=== PATIENT | female | born 1990 | race Caucasian/White ===

== ENCOUNTER 2019-08-14 21:37 | Outpatient (REF) | payer SELFPAY ==
[2019-08-14 21:47] LABS: Bilirubin Negative (Negative); Blood Moderate (Negative); Clarity Sl Cloudy (Clear); Glucose Negative (Negative); Ketones Negative (Negative); Leukocyte Esterase Small (Negative); Nitrite Negative (Negative); Specific Gravity 1.015 (1.005-1.025); pH 7.5 (5-8)
[2019-08-14 22:17] LABS: Bacteria Moderate HPF (Negative); Crystals Negative HPF (Negative); Epithelial Cells Many HPF (Negative); Mucus Negative (Negative); WBC 20-50 HPF (0-5)
[2019-08-14 22:18] LABS: C & S Indicated? C&S Done As Ordered
== END 2019-08-14 21:57 ==
LOC: NCHCN 21:37
PROVIDERS: PCP Nurse Practitioner Family; Visit Provider Nurse Practitioner Family
DX: N39.0 Urinary tract infection, site not specified (principal)
CPT/HCPCS: 87077; 81003; 81015; 87086; 87186

== ENCOUNTER 2019-10-13 21:13 | Outpatient (REF) | payer OTHER, SELFPAY ==
[2019-10-13 21:49] LABS: HCG Quant, Pregnancy < 1 mIU/mL (1-3)
== END 2019-10-13 21:33 ==
LOC: NCHCN 21:13
PROVIDERS: PCP Nurse Practitioner Family; Visit Provider Nurse Practitioner Community Health
DX: R10.32 Left lower quadrant pain (principal)
CPT/HCPCS: 84702

== ENCOUNTER 2020-01-05 21:10 | Outpatient (REF) | payer OTHER, SELFPAY ==
[2020-01-05 21:03] LABS: HCT 40.8 % (36.0-46.0); HGB 13.3 g/dL (12.0-15.5); Mean Corp. HGB Concentration 32.6 g/dL (32.0-36.0); Mean Corpuscular Hemoglobin 28.3 pg (27.0-33.0); Mean Corpuscular Volume 86.8 fL (80-95); Mean Platelet Volume 10.4 fL (8.0-11.0); Platelet Count 320 x1000/uL (130-400); White Blood Cell Count 3.75 k/cumm (4.4-10.8)
[2020-01-05 21:37] LABS: Vitamin D 25 Total 20.6 ng/ml (30-100)
[2020-01-05 21:52] LABS: BUN 18 mg/dL (7-18); Calcium 9.1 mg/dL (8.5-10.1); Chloride 105 mmol/L (98-107); Glucose 92 mg/dL (74-106); Magnesium 1.8 mg/dL (1.8-2.4); Potassium 4.1 mmol/L (3.5-5.1); Sodium 139 mmol/L (136-145); TSH (W/Ref FT4) 2.81 uIU/mL (0.36-3.74); Vitamin B12 429 pg/mL (193-986)
== END 2020-01-05 21:30 ==
LOC: NCHCN 21:10
PROVIDERS: PCP Nurse Practitioner Family; Visit Provider Nurse Practitioner Community Health
DX: N92.0 Excessive and frequent menstruation with regular cycle (principal); E87.6 Hypokalemia; E83.42 Hypomagnesemia; F41.8 Other specified anxiety disorders
CPT/HCPCS: 80048; 82306; 85027; 82607; 83735; 84443

== ENCOUNTER 2020-01-12 14:01 | Outpatient (REF) | payer OTHER, SELFPAY ==
[2020-01-12 20:57] LABS: Abs Immature Grans 0.01 k/cumm (0.0-0.09); Absolute Eosinophil Count 0.03 k/cumm (0.0-0.7); Absolute Lymphocyte Count 1.24 k/cumm (1.2-3.4); Absolute Monocyte Count 0.47 k/cumm (0.11-0.7); Absolute Neutrophil Count 1.93 k/cumm (1.2-6.7); Eosinophils % 0.8; HCT 42.2 % (36.0-46.0); HGB 13.8 g/dL (12.0-15.5); Immature Grans % 0.3 %; Lymphocytes % 33.7; Mean Corp. HGB Concentration 32.7 g/dL (32.0-36.0); Mean Corpuscular Hemoglobin 28.3 pg (27.0-33.0); Mean Corpuscular Volume 86.7 fL (80-95); Mean Platelet Volume 9.7 fL (8.0-11.0); Monocytes % 12.8; Neutrophils % 52.4; Platelet Count 324 x1000/uL (130-400); RBC 4.87 m/cumm (4.00-5.20); RBC Distribution Width 13.8 % (11.7-14.6); White Blood Cell Count 3.68 k/cumm (4.4-10.8)
== END 2020-01-12 14:21 ==
LOC: NCHCN 14:01
PROVIDERS: PCP Nurse Practitioner Family; Visit Provider Nurse Practitioner Community Health
DX: D72.819 Decreased white blood cell count, unspecified (principal)
CPT/HCPCS: 85025

== ENCOUNTER 2020-09-03 21:28 | Outpatient (REF) | payer OTHER, SELFPAY ==
[2020-09-05 17:05] LABS: COVID-19 RT-PCR UVMMC Result Negative (Negative)
== END 2020-09-03 21:48 ==
LOC: NCHCN 21:28
PROVIDERS: PCP Nurse Practitioner Family; Visit Provider Nurse Practitioner Family
DX: J06.9 Acute upper respiratory infection, unspecified (principal)
CPT/HCPCS: U0003

== ENCOUNTER 2020-09-15 20:56 | Outpatient (REF) | payer OTHER, SELFPAY ==
[2020-09-15 22:30] LABS: Hemoglobin A1C 5.5 % (<5.7)
== END 2020-09-15 20:57 | disposition home or self-care (01) ==
LOC: NCHCN 20:56
PROVIDERS: PCP Nurse Practitioner Family; Visit Provider Nurse Practitioner Community Health
DX: R11.0 Nausea (principal); Z87.42 Personal history of other diseases of the female genital tract; Z31.69 Encounter for other general counseling and advice on procreation
CPT/HCPCS: 83036

== ENCOUNTER 2020-09-30 20:52 | Outpatient (REF) | payer OTHER, SELFPAY ==
[2020-09-30 21:27] LABS: Abs Immature Grans 0.01 10^3/uL (0.0-0.06); Absolute Basophil Count 0.03 10^3/uL (0.0-0.2); Absolute Eosinophil Count 0.03 10^3/uL (0.0-0.7); Absolute Lymphocyte Count 1.44 10^3/uL (1.2-3.4); Absolute Monocyte Count 0.51 10^3/uL (0.1-0.8); Basophils % 0.6; Eosinophils % 0.6; HCT 41.9 % (36.0-46.0); HGB 13.6 g/dL (11.2-15.7); Immature Grans % 0.2; Lymphocytes % 30.5; MCH 28.4 pg (27.0-33.0); MCHC 32.5 % (32.0-36.0); MCV 87.5 fL (80-95); MPV 10.1 fL (8.0-11.0); Monocytes % 10.8; Neutrophils % 57.3; Nucleated RBC 0 %; Platelet Count 317 10^3/uL (130-400); RBC 4.79 10^6/uL (3.93-5.22); RDW-SD 41.6 fL; WBC 4.72 10^3/uL (4.4-10.8)
[2020-09-30 21:39] LABS: ALT 19 U/L (14-59); AST 17 U/L (15-37); Albumin 4.2 g/dL (3.4-5.0); Alkaline Phosphatase 52 U/L (46-116); Anion Gap 5.3 mmol/L (3-11); BUN 16 mg/dL (7-18); Bilirubin, Total 0.8 mg/dL (0.2-1.0); CO2 29.7 mmol/L (21.0-32.0); CREATININE 0.7 mg/dL (0.55-1.02); Calcium 9.4 mg/dL (8.5-10.1); Chloride 105 mmol/L (98-107); Glucose 112 mg/dL (74-106); Lipase 140 U/L (73-393); Sodium 140 mmol/L (136-145); Total Protein 7.8 g/dL (6.4-8.2)
== END 2020-09-30 20:53 | disposition home or self-care (01) ==
LOC: NCHCN 20:52
PROVIDERS: PCP Nurse Practitioner Family; Visit Provider Registered Nurse
DX: R11.0 Nausea (principal); M79.18 Myalgia, other site
CPT/HCPCS: 80053; 83690; 85025

== ENCOUNTER 2022-09-25 10:47 | Outpatient (REF) | payer OTHER, SELFPAY ==
--- NOTE | 2022-09-25 10:30 | PAPFT_PTH ---
PATIENT: Gertrudis Royal LOC: [facility] U#:[id number] AGE/SX: 32/F ROOM: RE09/25/[address]: Shena Browne : 1990 BED: DIS: 09/25/2022 SPEC #: [id number] RECD: 09/25/22 17:51 STATUS: SEBASTIAN REQ #: [id number] EDMUNDO: 09/25/22 10:[address]: Shena Browne DEPT: [facility] Cytology RECD BY: Cathy Wagner ENTERED: 09/25/22 17:51 SP TYPE: PAPFT OTHR DR: Anna Fleming Tissues: 1 - CX/ENDOCX FOR PAP SMEARS Procedures: PAP THIN PREP/[facility] Screening HPV DNA PROBE Comments: [id number] (CHLAMYDIA/GC)
[2022-09-26 13:51] LABS: Chlamydia Result Negative (Negative); GC Result Negative (Negative)
== END 2022-09-25 10:48 | disposition home or self-care (01) ==
LOC: LBN 10:47
PROVIDERS: PCP Nurse Practitioner Family; Visit Provider Nurse Practitioner Family
DX: Z11.3 Encounter for screening for infections with a predominantly sexual mode of transmission (principal); Z12.4 Encounter for screening for malignant neoplasm of cervix; Z11.51 Encounter for screening for human papillomavirus (HPV)
CPT/HCPCS: 87491; 87591; 88142; 87624

== ENCOUNTER 2022-12-11 14:46 | Outpatient (REF) | payer OTHER, SELFPAY ==
[2022-12-11 16:49] LABS: HCT 41.2 % (36.0-46.0); MCH 27.3 pg (27.0-33.0); MCHC 31.6 % (32.0-36.0); MCV 86 fL (80-95); MPV 9.9 fL (8.0-11.0); Platelet Count 309 10^3/uL (130-400); RBC 4.77 10^6/uL (3.93-5.22); RDW 13.4 % (11.7-14.6); WBC 3.78 10^3/uL (4.4-10.8)
[2022-12-11 17:30] LABS: Anion Gap 6.1 mmol/L (3-11); BUN 14 mg/dL (7-18); CO2 28.9 mmol/L (21.0-32.0); CREATININE 0.8 mg/dL (0.55-1.02); Calcium 8.9 mg/dL (8.5-10.1); Chloride 106 mmol/L (98-107); Estimated GFR 99.71 (mL/min/1.73m2); Glucose 108 mg/dL (74-106); Potassium 4.4 mmol/L (3.5-5.1); Sodium 141 mmol/L (136-145); TSH (W/Ref FT4) 1.68 uIU/mL (0.36-3.74)
== END 2022-12-11 14:47 | disposition home or self-care (01) ==
LOC: NCHCN 14:46
PROVIDERS: PCP Nurse Practitioner Family; Visit Provider Nurse Practitioner Family
DX: F41.8 Other specified anxiety disorders (principal); R10.9 Unspecified abdominal pain; N93.8 Other specified abnormal uterine and vaginal bleeding
CPT/HCPCS: 80048; 85027; 84443

== ENCOUNTER 2023-04-24 17:29 | Outpatient (REF) | payer OTHER, SELFPAY | END 2023-04-24 17:30 | disposition home or self-care (01) | LOC: NCHCN 17:29 | PROVIDERS: PCP Nurse Practitioner Family; Visit Provider Nurse Practitioner Family | DX: N89.8 Other specified noninflammatory disorders of vagina (principal); R10.9 Unspecified abdominal pain | CPT/HCPCS: 87480; 87510; 87660 ==